=== PATIENT | male | born 1970 | race Caucasian/White ===

== ENCOUNTER 2017-01-26 13:23 | Emergency (ER) | payer BC ==
[2017-01-26] MEDS ORDERED: KETOROLAC 15 MG/1 ML VIAL IVP ONE (13:46)
[2017-01-26] MEDS ORDERED: LORazepam 2 MG/1 ML VIAL IVP ONE (13:46)
[2017-01-26] MEDS ORDERED: Sodium Chloride 0.9% 1,000 ML PRIMARY IV ONE (13:46)
--- NOTE | 2017-01-26 13:52 | PDOC ---
Back Pain / Injury HPI - General Chief Complaint: Neck / Back Complaint Stated Complaint: BACK PAIN THIS AM, IN CAR SINCE 1130 Date Seen by Provider: 01/26/17 Time Seen by Provider: 13:47 Source: Patient, EMS Exam Limitations: POSITIVE: No limitations Nurse's Notes Reviewed & Considered: Yes - History of Present Illness Initial Comments: Pleasant 46-year-old male comes in with chief complaint of left-sided lower back pain. Earlier today approximately 7:30 this morning, patient was picking up his 60 pound pit bull. He felt a twinge in his back at that time. He went to work and had escalating back pain. He tried to get into his car to go home and had a flare of muscle spasm and pain left sided paraspinal lumbar muscles. He states it took him approximately 30 minutes to close the door, then drove home and had to call for EMS to come in extricate him from the car. He denies any headache, chest pain, no shortness of breath, no nausea vomiting or diarrhea , no hematuria or dysuria. He denies any incontinence of urine or stool. Body Location Affected: REPORTS: Back Timing: REPORTS: Abrupt Duration: 4-6 hours Severity: Severe Quality: REPORTS: Cramping, "Pain", Sharpness, Stabbing, Throbbing Context: REPORTS: Lifting, Turning Location at Time of Onset: REPORTS: Home Modifying Factors: improves with: Nothing Associated Symptoms: REPORTS: Back pain Similar Symptoms Previously: No Recent Care Received: REPORTS: Denies Any Prior Injuries Related to Current Complaint?: No ROS - Limitations ROS Limitations: No Limitations Constitution: REPORTS: Denies Symptoms Cardiovascular: REPORTS: Denies Cardiac Symptoms Respiratory: REPORTS: Denies Resp Symptoms Neurological: REPORTS: Denies Neuro Symptoms Gastrointestinal: REPORTS: Denies GI Symptoms Endocrine: REPORTS: Denies Symptoms Musculoskeletal: REPORTS: Back Pain Genitourinary: REPORTS: Denies Symptoms Eyes: REPORTS: Denies Symptoms ENT: REPORTS: Denies Symptoms Skin: REPORTS: Denies Skin Symptoms Lympathic: REPORTS: Denies Lympathic Symptoms Immunologic: POSITIVE: Denies Symptoms Psychiatric: POSITIVE: Denies Psych Symptoms Back Physical Assessment - General Appearance General Appearance: REPORTS: Alert, Cooperative, No Evidence of Trauma, Moderate Distress - HEENT HEENT: POSITIVE: Head Inspection Nml, Eyes Inspection Nml, Ears Inspection Nml, Nose Inspection Nml, Oral/Dental Inspect. Nml, Pharynx Inspect. Nml, PERRL, EOMI - Pupil Size Pupil Size: 4 mm: Bilateral - Neck Neck: POSITIVE: Non Tender, Painless ROM, Trachea Midline, Nexus Criteria Negative - Respiratory / CVS Respiratory / CVS: POSITIVE: Chest Non Tender, No Ecchymosis, Breath Sounds Normal, No Respiratory Distress, Heart Sounds Normal, Regular Rate/Rhythm - Abdomen Abdomen: Soft: (All Quadrants), Normal Bowel Sounds: (All Quadrants), Denies Tenderness: (All Quadrants), No Splenomegaly: (All Quadrants), No Hepatomegaly: (All Quadrants), No Guarding: (All Quadrants), No Rebound: (All Quadrants), No Palpable Pulse: (All Quadrants), No Palpabale Mass: (All Quadrants), No Distention: (All Quadrants), No Rigidity: (All Quadrants) - Back Back: REPORTS: No Vertebral Tenderness, Muscle Spasm (Left-sided lumbar paraspinal muscles) - Skin Skin: REPORTS: Intact, Normal For Race, Warm, Dry, No Rash - Extremities Extremity Assessment: Non-Tender: (ALL), Normal ROM: (ALL), No Edema: (ALL), Normal Inspection: (ALL), No Swelling: (ALL), Pelvis Stable: (ALL) Musculoskeletal: REPORTS: Back Pain - Neurological / Psychological Neuro / Psych: POSITIVE: Oriented X3, Motor Normal, Sensation Normal Back Progress - Results Reviewed by me Xrays/CTs/US Reviewed: Yes Lab Results Reviewed: Yes Lab Results:: Laboratory Results 01/26/17 Range/Units 13:58 WBC 9.95 (4.8-10.8) 10^3/uL RBC 5.16 (4.70-6.10) 10^6/uL Hgb 15.9 (14.0-18.0) g/dL Hct 43.5 (42.0-52.0) % MCV 84.3 (80-90) FL MCH 30.8 (27-31) PG MCHC 36.6 (33-37) g/dL RDW Std Deviation 40.9 (39-50) fL RDW Coeff of Ean 13.4 (11.5-14.5) % Plt Count 290 (140-350) 10*3/uL MPV 9.1 (7.4-12.2) FL Immature Gran % (Auto) 0.2 (0-5) % Neut % (Auto) 69.8 (50-80) % Lymph % (Auto) 20.5 (10-50) % [place] % (Auto) 5.7 (5-15) % Eos % (Auto) 2.8 (0-8) % Baso % (Auto) 1.0 (0-1) % Immature Gran # (Auto) 0.02 10*3/UL Neut # (Auto) 6.94 10*3/UL Lymph # (Auto) 2.04 10*3/uL [place] # (Auto) 0.57 (0.3-0.8) 10*3/UL Eos # (Auto) 0.28 10*3/UL Baso # (Auto) 0.10 10*3/UL WBC Morphology Comment Normal morphology (NORM) Plt Morphology Comment Normal morphology (NORM) RBC Morph Comment Normal morphology (NORM) Sodium 138 (135-145) meq/L Potassium 3.8 (3.8-5.2) meq/L Chloride 103 (98-112) meq/L Carbon Dioxide 21 L (23-33) meq/L Anion Gap 14 (5-20) BUN 11 (7-22) mg/dL Creatinine 0.8 (0.70-1.50) mg/dL Estimated GFR > 60 (>60 ml/min/1.73m(2)) BUN/Creatinine Ratio 13.75 (6-20) Glucose 125 H (78-110) mg/dL Calculated Osmolality 285.0 (267-292) mOsm/kg Calcium 10.0 (8.7-10.7) mg/dL Magnesium 1.8 (1.6-2.4) mg/dL Total Bilirubin 0.6 (0.3-1.2) mg/dL AST 32 (21-57) IU/L ALT 56 (21-72) IU/L Alkaline Phosphatase 79 (38-126) IU/L C-Reactive Protein 0.8 (0.0-0.9) mg/dL Total Protein 7.7 (6.1-8.0) g/dL Albumin 4.7 (3.5-4.8) g/dL Globulin 3.0 (2.50-4.10) g/dL Albumin/Globulin Ratio 1.50 (1.3-2.0) mg/g - Patient's Progress Pain Medication Addressed: POSITIVE: Yes Re-Examine Time: 17:00 Status: POSITIVE: Improved MDM / ED Course: Patient was examined, an IV started, blood drawn and sent to the lab for studies , radiographic examinations were obtained. Findings: CBC is within normal limits. Comprehensive metabolic panel was within normal limits. CT scan of his lumbar spine shows no acute abnormalities. Assessment: Back pain with muscle spasms in the paraspinal muscles. Plan: Discharge home on [place] and [place] instructions to follow-up with primary care physician calling for an appointment tomorrow and to return here to the emergency room if no improvement in 2-3 days or if worsening condition. - Consult Counseled: POSITIVE: Patient, Family, RE: Lab Results, RE: Radiology Results, RE : DX, RE: Need for F/U Patient Care Time - Estimated PCT Patient Care Time (In Minutes): 45 Vital Signs - VS Reviewed Vital Signs Reviewed: Yes Discharge Clinical Impression: Acute low back pain Discharge Disposition: Discharged to Home Condition: Stable Patient Instructions Given at Discharge: Back Pain (ED)
[2017-01-26 14:02] LABS: HEMATOCRIT 43.5 % (42.0-52.0); HEMOGLOBIN 15.9 g/dL (14.0-18.0); MEAN CORPUSCULAR HEMOGLOBIN 30.8 PG (27-31); MEAN CORPUSCULAR HGB CONC 36.6 g/dL (33-37); MEAN CORPUSCULAR VOLUME 84.3 FL (80-90); RED BLOOD COUNT 5.16 10^6/uL (4.70-6.10)
[2017-01-26 14:03] LABS: EOSINOPHILS # (AUTO) 0.28 10*3/UL; EOSINOPHILS % (AUTO) 2.8 % (0-8); LYMPHOCYTES # (AUTO) 2.04 10*3/uL; MEAN PLATELET VOLUME 9.1 FL (7.4-12.2); MONOCYTES # (AUTO) 0.57 10*3/UL (0.3-0.8); MONOCYTES % (AUTO) 5.7 % (5-15); NEUTROPHILS # (AUTO) 6.94 10*3/UL; NEUTROPHILS % (AUTO) 69.8 % (50-80)
[2017-01-26 14:14] LABS: PLATELET MORPHOLOGY COMMENT NORMAL MORPHOLOGY (NORM); RBC MORPHOLOGY COMMENT NORMAL MORPHOLOGY (NORM); WBC MORPHOLOGY COMMENT NORMAL MORPHOLOGY (NORM)
[2017-01-26 14:18] LABS: BLOOD UREA NITROGEN 11 mg/dL (7-22); BUN/CREATININE RATIO 13.75 (6-20); C-REACTIVE PROTEIN 0.8 mg/dL (0.0-0.9); EST GLOMERULAR FILTRATION > 60 (>60 ml/min/1.73m(2)); MAGNESIUM 1.8 mg/dL (1.6-2.4); SERUM ALBUMIN 4.7 g/dL (3.5-4.8)
--- NOTE | 2017-01-26 15:42 | DI ---
CT LUMBAR SPINE W/O CONTRAST,01/26/2017 1:46 PM: Clinical History: Low back pain Previous Exam: None at this facility. Findings: Multiple helically acquired CT images are obtained through the lumbar spine with sagittal and coronal reconstructions, and demonstrate anatomic alignment without fractures. There is mild loss of disc he ight at multiple levels with a broad-based disc bulge at L3/4, L4/5 and L5/S1. There is no evidence o f osteolysis nor spondylolisthesis. The paraspinal soft tissues are unremarkable. There is no evidence of renal stone. Impression: Mild degenerative changes of the lumbar spine without fractures.
[2017-01-26] MEDS ORDERED: MORPHINE SULFATE 4 MG/1 ML IVP ONE (16:59)
[2017-01-26 19:55] VITALS: RESP 18; TEMP 98.2
== END 2017-01-26 18:00 | disposition home or self-care (01) ==
LOC: ER 13:23
DX: M54.5 Low back pain (principal); M62.830 Muscle spasm of back; M47.816 Spondylosis without myelopathy or radiculopathy, lumbar region; X50.0XXA Overexertion from strenuous movement or load, initial encounter
CPT/HCPCS: 36415; 72131; 80053; 83735; 85025; 86140; 96361; 96374; 96375; 99283 ×2; J1885; J2060; J2270